=== PATIENT | male | born 1945 | race Caucasian/White ===

== ENCOUNTER 2017-08-05 08:29 | Inpatient (IN) | payer MEDICARE, OTHER ==
[~2017-08-05] VITALS: Ht 172.7 cm; Wt 105.2 kg
[~2017-08-05 08:29] MED LIST: DETROL LA4 MG PO; LIPITOR10 MG PO; LISINOPRIL40 MG PO; OMEPRAZOLE20 MG PO; PIROXICAM20 MG PO; VITAMIN D1000 UNI1 PO
[2017-08-11] MEDS ORDERED: DICLOFENAC SODI75 MG PO (15:02)
[2017-08-11] MEDS ORDERED: GLUCOPHAGE XR500 MG PO (15:02)
[2017-08-11] MEDS ORDERED: ONE DAILY FOR1 EAC2 PO (15:03)
[2017-08-18] MEDS ORDERED: ZANTAC150 MG PO (16:42)
--- NOTE | 2017-08-19 13:08 | OR ---
[facility] [address], [place] [address] Signed DATE OF OPERATION: 08/18/2017 SURGEON: Akash Mancia MD PREOPERATIVE DIAGNOSIS: End-stage osteoarthritis, right knee. POSTOPERATIVE DIAGNOSIS: End-stage osteoarthritis, right knee. PROCEDURE: Right total knee arthroplasty. IMPLANTS: Attune size 8 PS femur, a size 6 standard tibial tray, a 5 mm PS poly, and a 41 mm all-poly patella. PROCEDURE NOTE: The patient was taken to the operating room. After anesthesia was induced, airway secured, the patient was positioned, prepped, and draped in a routine sterile fashion. The leg was exsanguinated with elevation. Pneumatic tourniquet was inflated to 300 mmHg pressure. The knee was approached through a straight anterior incision. A small medial flap was created. An anteromedial arthrotomy performed. The patella was turned on edge and about 10 mm were trimmed off the posterior aspect. The lollipops were then selected, the patella sized to a size 41 and the drill holes were made for 41 mm patella. We then snap-fit the trial poly patella and found we had exactly reconstituted the patellar height. The patella was then slid into the lateral recess. Using the Promedior navigation system and following the protocol, we digitized the distal end of the femur. We then resected the distal femur at the 11 mm saima in neutral varus/valgus and in about 3 degrees of flexion. The wafers were then removed. We then transitioned the Rotan navigation system to the tibia and again following the Rotan protocol digitized the proximal tibia. We then resected the proximal tibia. The 6 mm saima in neutral varus/valgus and in 3 degrees of posterior slope per the Attune surgical protocol. The tibial wafer was then removed along with remnants of the medial lateral meniscus. The femoral sizing block was then placed on the distal femur and actually sized to a size 9 anteroposteriorly, but this gave us a tremendous amount of overhanging medial laterally. We, therefore, downsized to a size 8 and excepted the tiny notch on the distal anterior femur. The 4-in-1 cutting block was then placed on the distal femur and we resected anteriorly, posteriorly and both of the chamfer cuts. We then placed the notch cutting block on the distal femur and cut out the notch. The notch fragment and remnants of the medial and lateral menisci, ACL, and PCL were then removed again. We then impacted the femoral trial, drilled the lug holes and after examining the tibial wafer, surmised Electronically Signed By: AKASH MANCIA MD 08/19/17 1308 PATIENT NAME: RITU DEL VALLE OPERATIVE REPORT DATE OF : 43 PHYSICIAN: AKASH MANCIA MD REPORT #: [id number] REPORT IS CONFIDENTIAL AND NOT TO BE RELEASED WITHOUT AUTHORIZATION [address] [address] Signed that we could really only place about a size 6 tibial tray on the tibia. We, therefore, assembled the 5 mm insert along with a size 6 tray and inserted it in the knee. We had excellent stability and alignment. The knee went into full extension and flexed to about 125 degrees. We cycled it a number of times, though we marked the rotation of the tibial tray. We then removed all the trials and prepared the tibia using the standard reamer and broach. The knee was then copiously irrigated and meticulously dried. We then cemented the tibial tray. The femoral component and the patellar button into place and placed a 5 mm trial poly on the tibial tray and held the knee in full extension until the cement had cured. Once the cement was completely cured, we then flexed the knee again. We removed the trial poly and found that even up sizing to a 6 mm insert started to compromise our extension. We, therefore, placed a 5 mm tibial polyethylene insert on the tibial tray and snapped into the tibial tray. The knee was then gently irrigated and drained. Routine wound closure was accomplished. A sterile dressing applied and the patient was awakened to the recovery room where he arrived in stable condition. Counts were correct and antibiotic protocols were followed. Akash Mancia MD WFB/MODL /[id number] cc: Emeka Sawant DO Electronically Signed By: AKASH MANCIA MD 08/19/17 1308 PATIENT NAME: RITU DEL VALLE OPERATIVE REPORT DATE OF : 43 PHYSICIAN: AKASH MANCIA MD REPORT #: [id number] REPORT IS CONFIDENTIAL AND NOT TO BE RELEASED WITHOUT AUTHORIZATION
[2017-08-25] MEDS ORDERED: OXYCODONE HCL10 MG PO (13:05)
[2017-08-25] MEDS ORDERED: DILAUDID4 MG PO (13:06)
[2017-08-25] MEDS ORDERED: XARELTO10 MG PO (13:07)
--- NOTE | 2017-08-26 17:37 | DS ---
[facility] [address], [place] [address] Signed ADMISSION DATE: 08/18/2017 DISCHARGE DATE: 08/25/2017 FINAL DIAGNOSIS AT THE TIME OF DISCHARGE: Osteoarthritis, right knee. PROCEDURE: Right total knee arthroplasty. SURGEON: Akash Mancia MD HISTORY OF PRESENT ILLNESS: The patient has a long history of osteoarthritis in the right knee. He got to the point where he could essentially no longer ambulate and he was not getting any symptomatic relief from conservative modalities. After discussing the potential risks, benefits, and complications, he elected to proceed with total knee arthroplasty. HOSPITAL COURSE: The patient was admitted on 08/18/2017 through Day Surgery, was taken to the operating room, where he underwent a total knee arthroplasty using the Attune PS knee system. He had an uneventful surgical encounter. Postoperatively, he did well, although he was extraordinarily slow and relatively poorly motivated to continue his physical therapy. There are numerous notes from the physical therapist about him either refusing therapy or refusing certain parts of his therapy. At the present time, he is minimally ambulatory with the assistance of some family members and they are all just anxious to get him home. The family has the opinion that once they get him home, they will be able to motivate him to get up and move around a little bit more. Objectively, he has been afebrile. His vitals have been stable. His hemoglobin was 12.8 after surgery and his blood sugars have been well controlled. His incision was clean, dry, and healing uneventfully. His calves have been negative. He is being discharged home on activity as tolerated, weightbearing as tolerated on the right. He is free to shower and can pursue a general diet. In terms of pain medication, we are going to have him continue to alternating Dilaudid and OxyIR. We will have him continue on Xarelto 10 mg 1 once a day for another month. We will have him follow up with us in about 4 weeks in the office. Electronically Signed By: AKASH MANCIA MD 08/26/17 1737 PATIENT NAME: IVONRITU AKASH DISCHARGE SUMMARY DATE OF : 43 PHYSICIAN: AKASH MANCIA MD REPORT #: [id number] REPORT IS CONFIDENTIAL AND NOT TO BE RELEASED WITHOUT AUTHORIZATION [address] [place] [address] Signed Akash Mancia MD WFB/MODL /[id number] Electronically Signed By: AKASH MANCIA MD 08/26/17 1737 PATIENT NAME: RITU DEL VALLE DISCHARGE SUMMARY DATE OF : 43 PHYSICIAN: AKASH MANCIA MD REPORT #: [id number] REPORT IS CONFIDENTIAL AND NOT TO BE RELEASED WITHOUT AUTHORIZATION
== END 2017-08-25 15:25 | disposition home or self-care (01) | DRG 470 ==
LOC: MS 08-18 05:30 → DSVR 08-18 05:30 → MS 08-18 06:45
PROVIDERS: ADMIT Orthopaedic Surgery
PROC: 0SRC0J9 Replacement of Right Knee Joint with Synthetic Substitute, Cemented, Open Approach (ICD-10-PCS; principal; 2017-08-18 06:45)
DX: M17.11 Unilateral primary osteoarthritis, right knee (principal); G47.33 Obstructive sleep apnea (adult) (pediatric); G89.18 Other acute postprocedural pain; I12.9 Hypertensive chronic kidney disease with stage 1 through stage 4 chronic kidney disease, or unspecified chronic kidney disease; N18.3 Chronic kidney disease, stage 3 (moderate); R73.03 Prediabetes; K21.9 Gastro-esophageal reflux disease without esophagitis; R26.9 Unspecified abnormalities of gait and mobility; Z79.84 Long term (current) use of oral hypoglycemic drugs; Z98.2 Presence of cerebrospinal fluid drainage device
CPT/HCPCS: 01402; 36415; 64447; 64450; 73560; 76942; 80048; 80053; 85025; 94762; 97110; 97116; 97161; 97530; 99406; C1713; C1776; J0690; J1100; J1885; J2250; J2274; J2704; J2795; J3010; J7120

== ENCOUNTER 2020-11-08 08:44 | Emergency (ER) | payer MEDICARE, OTHER ==
[~2020-11-08] VITALS: Ht 172.7 cm; Wt 105.2 kg
[~2020-11-08 08:44] MED LIST changes: +DICLOFENAC SODI75 MG PO; +DILAUDID4 MG PO; +GLUCOPHAGE XR500 MG PO; +ONE DAILY FOR1 EAC2 PO; +OXYCODONE HCL10 MG PO; +XARELTO10 MG PO; +ZANTAC150 MG PO
== END 2020-11-08 15:49 | disposition home or self-care (01) ==
LOC: ED 08:44
DX: U07.1 COVID-19 (principal); I10 Essential (primary) hypertension; Z87.891 Personal history of nicotine dependence; Z79.899 Other long term (current) drug therapy; Z79.84 Long term (current) use of oral hypoglycemic drugs
CPT/HCPCS: 51701; 70450; 71045; 80053; 81001; 84484; 85025; 99284-25; C9803; J7050; M0239; U0003